=== PATIENT | male | born 1980 | race Two or more races ===

== ENCOUNTER 2023-08-05 07:37 | Day surgery (SDC) | payer MEDICAID ==
[2023-07-29 08:55] LABS: Urine Bacteria None Seen /hpf (None Seen)
[2023-07-29 09:03] LABS: Basophils # (auto) 0 10 ^3/uL (0-0.2); Basophils % (auto) 0.8 % (0.0-2.0); Eosinophils # (auto) 0.1 10 ^3/uL (0-0.8); Eosinophils % (auto) 1.7 % (0.0-7.0); Hematocrit 44.2 % (41.0-53.0); Hemoglobin 14.8 g/dL (13.5-17.5); Lymphocytes # (auto) 1.3 10 ^3/uL (0.4-5.4); Lymphocytes % (auto) 24.2 % (10.0-50.0); Mean Corpuscular Hemoglobin 32.7 pg (28.0-32.0); Mean Corpuscular Hgb Conc. 33.5 g/dL (32.0-36.0); Mean Corpuscular Volume 97.4 fL (80.0-100.0); Monocytes # (auto) 0.6 10 ^3/uL (0-1.3); Neutrophils # (auto) 3.2 10 ^3/uL (1.6-8.6); Neutrophils % (auto) 61.3 % (37.0-80.0); Nucleated Red Blood Cells % 0.1 %; Red Blood Cells 4.53 10^6/uL (4.5-5.90); Red Cell Distribution Width 14.7 % (11.8-14.3); White Blood Cell 5.2 10^3/uL (4.4-10.8)
[2023-07-29 09:15] LABS: INR 1.05 (0.9-1.15)
[2023-07-29 09:23] LABS: Urine Blood Negative /uL (Negative); Urine Clarity Clear (Clear); Urine Color Yellow (Yellow); Urine Protein, UAD TRACE (Negative); Urine Specific Gravity 1.019 (1.001-1.035); Urine Urobilinogen 2 mg/dL (Negative); Urine WBC 2 /hpf (0 - 3)
[2023-07-29 09:34] LABS: Alanine Aminotransferase 72 U/L (7-40); Albumin 4.5 g/dL (3.2-4.8); Alkaline Phosphatase 84 U/L (46-116); Anion Gap 10 (5-15); Aspartate Aminotransferase 61 U/L (13-40); Blood Urea Nitrogen 8 mg/dL (9-23); Calcium 9.1 mg/dL (8.5-10.1); Carbon Dioxide 22 mmol/L (20-30); Chloride 105 mmol/L (98-107); Glucose 101 mg/dL (74-106); Potassium 4.1 mmol/L (3.5-5.1); Sodium 137 mmol/L (136-145)
[2023-07-29 09:35] LABS: Bilirubin, Total 1.4 mg/dL (0.2-1.0); Total Protein 7.3 g/dL (5.7-8.2)
[~2023-08-05] VITALS: Ht 175.3 cm; Wt 138.3 kg
[~2023-08-05 07:37] MED LIST: TRAM50TA2 PO
[2023-08-05] MEDS ORDERED: fentaNYL CITRATE 100 MCG/2 ML VL ONE (08:46)
[2023-08-05] MEDS ORDERED: PROPOFOL 10 MG/ML 20 ML IV ONE (08:46)
[2023-08-05] MEDS ORDERED: MORPHINE SULF PF 5 MG/10 ML VIAL ONE ×3 (08:46→08:47)
[2023-08-05] MEDS ORDERED: ONDANSETRON HCL 4 MG/2 ML VIAL ONE (08:46)
[2023-08-05] MEDS ORDERED: SODIUM CHLORIDE LOCK 10 ML ONE (08:46)
[2023-08-05] MEDS ORDERED: KETAMINE 50mg/ML 1ml syringe ONE (08:46)
[2023-08-05] MEDS ORDERED: METOCLOPRAMIDE HCL 5MG/ml INJ 2ml VIAL IV ONE (09:00)
[2023-08-05] MEDS ORDERED: KETOROLAC TROMETH 30 MG/ML 1ML VIAL IV ONE (09:00)
[2023-08-05] MEDS ORDERED: HYDROmorphone HCL 2 MG/ML VL/or syr IV PRN ×2 (09:00)
[2023-08-05] MEDS ORDERED: MORPHINE SULFATE INJ 2 MG/ml SYRG IV PRN (09:00)
[2023-08-05] MEDS ORDERED: LIDOCAINE VISCOUS 2% 15ML UD ONE (09:16)
[2023-08-05 09:38] VITALS: TEMP 97.9; O2SAT 96
[2023-08-05 09:53] VITALS: BP 135/83; PULSE 66; RESP 16; O2SAT 96
== END 2023-08-05 10:12 | disposition home or self-care (01) ==
LOC: GI 07:37
PROVIDERS: ATTEND Internal Medicine Gastroenterology
DX: Z12.11 Encounter for screening for malignant neoplasm of colon (principal); K57.30 Diverticulosis of large intestine without perforation or abscess without bleeding; K29.50 Unspecified chronic gastritis without bleeding; R10.13 Epigastric pain; R11.2 Nausea with vomiting, unspecified; K63.89 Other specified diseases of intestine; E66.9 Obesity, unspecified; Z68.41 Body mass index [BMI] 40.0-44.9, adult; Z79.899 Other long term (current) drug therapy; Z98.84 Bariatric surgery status; Z90.49 Acquired absence of other specified parts of digestive tract; Z86.010 Personal history of colon polyps; Z98.890 Other specified postprocedural states; Z80.0 Family history of malignant neoplasm of digestive organs
CPT/HCPCS: 36415; 43239; 45378; 80053; 81001; 85025; 85610; 85730; 88305; 88312; 88342; J2405; J2704; J3010; J7030